=== PATIENT | female | born 1955 | race Caucasian/White ===

== ENCOUNTER → 2016-06-15 | Outpatient (CLI) | payer BC ==
[~2016-06-15] MED LIST: ASPI81TA28 PO; CYAN10005 PO; HYDR-5688 PO; HYDR25TA4 PO; INTB30 IM; METO1TAB69 PO; MULT-506 PO; NABU500T3 PO; NRN/600 PO; VENL150T33 PO
[2016-06-15 16:39] LABS: BASO % 0.4 %; BASO ABS # 0.02 K/uL (0-0.2); COMPLETE YES; EOS % 4.1 %; HEMATOCRIT 39.6 % (37-47); IG% 0.2 %; LYMPH % 37.1 %; LYMPH ABS # 1.98 K/uL (1.2-3.4); MEAN CELL VOLUME 90.8 fL (80-100); MEAN CORPUSCULAR HEMOGLOBIN 29.1 pg (25-34); MEAN CORPUSCULAR HGB CONC 32.1 g/dl (32-36); MEAN PLATELET VOLUME 11.6 fL (7.4-10.4); MONO % 12.9 %; NEUT % 45.3 %; PLATELET COUNT 146 K/uL (130-400); RED BLOOD COUNT 4.36 M/uL (4.2-5.4); WHITE BLOOD COUNT 5.34 K/uL (4.8-10.8)
[2016-06-15 16:46] LABS: ALT/SGPT 57 U/L (12-78); AST/SGOT 44 U/L (15-37); BLOOD UREA NITROGEN 20 mg/dl (7-18); CALCIUM 8.8 mg/dl (8.5-10.1); CARBON DIOXIDE 32 mmol/L (21-32); CHLORIDE 103 mmol/L (98-107); GLUCOSE 114 mg/dl (70-99); POTASSIUM 4.4 mmol/L (3.5-5.1); SODIUM 141 mmol/L (136-145)
[2016-06-15 16:58] LABS: ALB/GLOB RATIO 0.9 (0.9-2); ALKALINE PHOSPHATASE 126 U/L (45-117); CHOLESTEROL 281 mg/dl (0-200); CHOLESTEROL/HDL RATIO 4.8; HDL CHOLESTEROL 58 mg/dl; LDL CHOLESTEROL CALCULATED 197 mg/dl; TRIGLYCERIDES 129 mg/dl (0-150); VERY LOW DENSITY LIPOPROT CALC 26 mg/dl
[2016-06-16 06:00] LABS: ESTIMATED AVERAGE GLUCOSE 137 mg/dl; HA1C FLAG Normal (Normal)
== END | disposition home or self-care (01) ==
LOC: C.LABBFT 12:46
PROVIDERS: ATTEND Internal Medicine
DX: I10 Essential (primary) hypertension (principal); G35 Multiple sclerosis; R73.01 Impaired fasting glucose

== ENCOUNTER → 2016-09-19 | Outpatient (CLI) | payer BC ==
[~2016-09-19] MED LIST changes: +METO100T44 PO; -METO1TAB69 PO; +TAPE50TA5 PO
[2016-09-19 19:38] LABS: THYROID STIMULATING HORMONE 1.63 uIu/ml (0.300-4.500)
== END | disposition home or self-care (01) ==
LOC: C.LABBFT 12:18
PROVIDERS: ATTEND Internal Medicine
DX: G35 Multiple sclerosis (principal)

== ENCOUNTER → 2016-09-24 | Outpatient (CLI) | payer BC ==
--- NOTE | 2016-09-24 11:45 | DIAGNOSTIC IMAGING REPORT ---
ABDOMINAL ULTRASOUND, RIGHT UPPER QUADRANT HISTORY: R94.5 Elevated liver function [id number]. COMPARISON: Abdomen and pelvis CT 02/10/2014. FINDINGS: Pancreas: The pancreas demonstrates a normal echotexture. Liver: The liver is echogenic consistent with fatty change. Gallbladder: No gallbladder wall thickening. No gallstones. CBD: 4 mm. Right kidney: No hydronephrosis. IMPRESSION: Hepatic steatosis. Normal gallbladder. Electronically signed by: Jose Juan Trevino M.D. 09/24/2016 11:43 AM Dictated Date/Time: 09/24/2016 11:41 AM
== END | disposition home or self-care (01) ==
LOC: C.ULTR 11:12
PROVIDERS: ATTEND Internal Medicine
DX: R94.5 Abnormal results of liver function studies (principal); K76.0 Fatty (change of) liver, not elsewhere classified

== ENCOUNTER → 2016-12-05 | Outpatient (CLI) | payer BC ==
[~2016-12-05] MED LIST changes: -METO100T44 PO; +METO1TAB69 PO; -NABU500T3 PO; -TAPE50TA5 PO
[2016-12-05 17:53] LABS: ALT/SGPT 58 U/L (12-78); BLOOD UREA NITROGEN 13 mg/dl (7-18); BUN/CREATININE RATIO 10.9 (10-20); CALCIUM 9.5 mg/dl (8.5-10.1); CARBON DIOXIDE 29 mmol/L (21-32); CHLORIDE 105 mmol/L (98-107); CHOLESTEROL 230 mg/dl (0-200); GLUCOSE 158 mg/dl (70-99); POTASSIUM 3.4 mmol/L (3.5-5.1); SODIUM 141 mmol/L (136-145)
[2016-12-05 17:55] LABS: ALB/GLOB RATIO 0.9 (0.9-2); ALKALINE PHOSPHATASE 117 U/L (45-117); AST/SGOT 45 U/L (15-37); CHOLESTEROL/HDL RATIO 5.1; HDL CHOLESTEROL 45 mg/dl; LDL CHOLESTEROL CALCULATED 152 mg/dl; TRIGLYCERIDES 163 mg/dl (0-150); VERY LOW DENSITY LIPOPROT CALC 33 mg/dl
[2016-12-05 18:04] LABS: ALKALINE PHOSPHATASE 121 U/L (45-117); ALT/SGPT 56 U/L (12-78); AST/SGOT 43 U/L (15-37)
[2016-12-06 07:00] LABS: ESTIMATED AVERAGE GLUCOSE 143 mg/dl; HA1C FLAG Normal (Normal)
== END | disposition home or self-care (01) ==
LOC: C.LABBFT 12:24
PROVIDERS: ATTEND Psychiatry & Neurology Neurology
DX: G35 Multiple sclerosis (principal); R73.01 Impaired fasting glucose

== ENCOUNTER → 2017-07-02 | Outpatient (CLI) | payer BC ==
[~2017-07-02] MED LIST changes: -HYDR-5688 PO; +METO100T44 PO; -METO1TAB69 PO; +TAPE50TA5 PO
[2017-07-02 17:54] LABS: HEMATOCRIT 40.8 % (37-47); HEMOGLOBIN 13.2 g/dL (12.0-16.0); MEAN CELL VOLUME 87.7 fL (80-100); MEAN CORPUSCULAR HEMOGLOBIN 28.4 pg (25-34); MEAN CORPUSCULAR HGB CONC 32.4 g/dl (32-36); MEAN PLATELET VOLUME 11.8 fL (7.4-10.4); PLATELET COUNT 150 K/uL (130-400); RED CELL DISTRIBUTION WIDTH CV 14.8 % (11.5-14.5); RED CELL DISTRIBUTION WIDTH SD 47.5 fL (36.4-46.3)
[2017-07-02 18:31] LABS: ALBUMIN 3.6 gm/dl (3.4-5.0); ALT/SGPT 42 U/L (12-78); AST/SGOT 33 U/L (15-37); BLOOD UREA NITROGEN 22 mg/dl (7-18); CALCIUM 9.1 mg/dl (8.5-10.1); CARBON DIOXIDE 29 mmol/L (21-32); CHOLESTEROL 223 mg/dl (0-200); CREATININE 0.98 mg/dl (0.60-1.20); GLUCOSE 157 mg/dl (70-99); POTASSIUM 3.7 mmol/L (3.5-5.1); SODIUM 138 mmol/L (136-145)
[2017-07-02 18:42] LABS: ALKALINE PHOSPHATASE 100 U/L (45-117); LDL CHOLESTEROL CALCULATED 151 mg/dl; TOTAL PROTEIN 7.4 gm/dl (6.4-8.2)
[2017-07-03 07:17] LABS: HEMOGLOBIN A1C 6.7 % (4.5-5.6)
== END | disposition home or self-care (01) ==
LOC: C.LABBFT 13:06
PROVIDERS: ATTEND Psychiatry & Neurology Neurology
DX: G35 Multiple sclerosis (principal); E11.9 Type 2 diabetes mellitus without complications

== ENCOUNTER → 2017-07-04 | Outpatient (CLI) | payer BC ==
[~2017-07-04] MED LIST changes: +DICL50TA3 PO; +OXYC1TAB3 PO
== END | disposition home or self-care (01) ==
LOC: C.LABBFT 12:56
PROVIDERS: ATTEND Internal Medicine
DX: E11.9 Type 2 diabetes mellitus without complications (principal)

== ENCOUNTER 2017-07-15 21:34 | Emergency (ER) | payer BC ==
[~2017-07-15] VITALS: Ht 157.5 cm; Wt 88.5 kg
[~2017-07-15 21:34] MED LIST changes: -OXYC1TAB3 PO
[2017-07-15 21:49] VITALS: TEMP 36.6; Ht 157.5 cm; Wt 88.5 kg
--- NOTE | 2017-07-15 22:36 | DIAGNOSTIC IMAGING REPORT ---
L HUMERUS MIN 2 VIEWS ROUTINE CLINICAL HISTORY: Left humeral pain status post trauma COMPARISON: None. DISCUSSION: There is a proximal left humeral fracture involving the humeral neck and greater tuberosity. There is no dislocation. The fracture is relatively nondisplaced. IMPRESSION: Acute proximal humeral fracture with involvement of the humeral neck and greater tuberosity. No evidence of dislocation Electronically signed by: Roni Andrade M.D. 07/15/2017 10:34 PM Dictated Date/Time: 07/15/2017 10:33 PM
[2017-07-15] MEDS ORDERED: KETOROLAC TROMETHAMINE 60 MG/2 ML VIAL IM STA (22:41)
[2017-07-15] MEDS ORDERED: ONDANSETRON 4MG OD TAB PO ONE (23:15)
[2017-07-15] MEDS ORDERED: OXYCODONE IR HOME PACK PO ONE (23:15)
[2017-07-15] MEDS ORDERED: OXYC1TAB3 PO (23:26)
--- NOTE | 2017-07-15 23:28 | EMERGENCY ROOM VISIT NOTE ---
History First contact with patient: 22:16 Chief Complaint: ARM PAIN Stated Complaint: BROKEN ARM L History of Present Illness The patient is a 61 year old female who presents to the Emergency Room with complaints of an injury to her left arm. The patient reports that she slipped on the snow and fell onto her left arm. She reports pain in the left upper arm rated 6/10. She denies numbness or weakness. She denies pain of the elbow or forearm. She did not hit her head when she fell. She denies any other injuries. Review of Systems A complete 6 point review of systems was reviewed with the patient with pertinent positives and negatives as per history of present illness. All else were negative. Past Medical/Surgical History Medical Problems: (1) Cellulitis (2) Kidney stone (3) Multiple sclerosis Surgical Problems: (1) H/O: hysterectomy Family History FH: HTN (hypertension) FH: diabetes mellitus FH: heart disease Kidney stone Social History Smoking Status: Never Smoker Alcohol Use: none Drug Use: none Marital Status: Occupation Status: employed Current/Historical Medications Scheduled Hydrochlorothiazide (Hctz), 25 MG PO QAM Interferon Beta-1A (Avonex), 30 MCG IM WK Metoprolol Succ (Toprol Xl) (Toprol-Xl ), 100 MG PO QAM Multivitamin (Multivitamin), 1 TAB PO DAILY Scheduled PRN Oxycodone Ir (Roxicodone Ir), 1-2 TAB PO Q4H PRN for Pain Physical Exam Vital Signs Date Time Temp Pulse Resp B/P (MAP) Pulse Ox O2 Delivery O2 Flow Rate FiO2 07/15/17 23:43 70 20 138/90 93 07/15/17 21:49 36.6 75 20 147/90 92 Room Air Physical Exam VITALS: Vitals are noted on the nurse's note and reviewed by myself. Vital signs stable. GENERAL: This is a 61-year-old female, in no acute distress, nondiaphoretic, well-developed well-nourished. MUSCULOSKELETAL: There is tenderness to palpation to the proximal aspect of the left humerus. Full range of motion of the shoulder and elbow. No tenderness of the distal clavicle, elbow or forearm. Addiction Treatment Counselor strength 5/5. NEURO: Patient was alert and oriented to person place and time. Medical Decision & Procedures ER Provider Diagnostic Interpretation: L HUMERUS MIN 2 VIEWS ROUTINE CLINICAL HISTORY: Left humeral pain status post trauma COMPARISON: None. DISCUSSION: There is a proximal left humeral fracture involving the humeral neck and greater tuberosity. There is no dislocation. The fracture is relatively nondisplaced. IMPRESSION: Acute proximal humeral fracture with involvement of the humeral neck and greater tuberosity. No evidence of dislocation Medications Administered Medications (Trade) Dose Ordered Sig/Ashish Route Start Time Stop Time Status Last Admin Dose Admin Ketorolac Tromethamine (Toradol Inj) 60 mg NOW STAT IM 07/15/17 22:41 07/15/17 22:42 DC 07/15/17 22:49 60 MG Oxycodone HCl (Roxicodone Immediate Rel 5MG Home Pack) 1 homepack UD ONCE PO 07/15/17 23:15 07/15/17 23:16 DC 07/15/17 23:29 1 HOMEPACK Ondansetron HCl (Zofran Odt) 4 mg ONE ONCE PO 07/15/17 23:15 07/15/17 23:16 DC 07/15/17 23:29 4 MG Medical Decision Differential diagnosis includes fracture, contusion, dislocation, among others. The patient was evaluated as above. X-ray of the left humerus was obtained and did show a fracture of the proximal humerus. Patient was placed in an arm sling. She was given a home pack and prescription of oxycodone for breakthrough pain. She requested Zofran for nausea and was given 4 mg Zofran ODT. She does have an intrathecal pain pump and was instructed to contact her pain management provider to discuss changing the dose of medication. Medication Reconcilliation Current Medication List: was personally reviewed by nh Blood Pressure Screening Patient's blood pressure: Normal blood pressure Impression Primary Impression: Proximal humeral fracture Departure Information Dispostion Home / Self-Care Condition GOOD Prescriptions Oxycodone Ir (Roxicodone Ir) 5 Mg Tab 1-2 TAB PO Q4H Y for Pain, #10 TAB For Initial Treatment Prov: Ju Flannery ., MARK 07/15/17 Referrals Ayaan Jennings M.D. (PCP) Christian Bonilla M.D. Patient Instructions [facility] Additional Instructions You have been treated in the Emergency Department for an arm fracture. You have been prescribed OxyIR to be used for pain control. This is a narcotic medication. You cannot drive or consume alcohol while on this medicine. This medicine should only be used for pain that cannot be controlled with over-the- counter pain medicines. For pain control, you can use the following [id number] medicines (if >12 yo): - Regular strength (325mg/tab) Tylenol (acetaminophen) 2 tabs every 4-6 hours as needed. Do not exceed 12 tablets in a 24 hour period. Avoid taking more than 4 grams (4000 mg) of Tylenol per day. This includes any other sources of acetaminophen you may take on a regular basis. - Regular strength (200 mg/tab) Advil (ibuprofen) 1-2 tabs every 4-6 hours as needed. Do not exceed a dose of 3200 mg per day. If this is a recent injury (<24 hrs), ice can be applied to the area of pain for the first 3 days to help decrease pain and inflammation. You have been provided the number for an Orthopaedic Surgeon. You should call this number as soon as possible to establish a follow-up visit from today's Emergency Department visit. Keep the shoulder sling in place until evaluated by Orthopedics. Return to the Emergency Department if your current symptoms worsen despite treatment course outlined above, or if you develop any of the following symptoms : intractable pain despite aforementioned treatment course or new onset of numbness or tingling of the arm. Problem Qualifiers Primary Impression: Proximal humeral fracture Encounter type: initial encounter Fracture type: closed
[2017-07-15 23:43] VITALS: BP 138/90; PULSE 70; O2SAT 93
== END 2017-07-15 23:44 | disposition home or self-care (01) ==
LOC: C.EDB 21:37 → C.EDA 23:44
DX: S42.295A Other nondisplaced fracture of upper end of left humerus, initial encounter for closed fracture (principal); S42.255A Nondisplaced fracture of greater tuberosity of left humerus, initial encounter for closed fracture; W00.9XXA Unspecified fall due to ice and snow, initial encounter; G35 Multiple sclerosis; Z82.49 Family history of ischemic heart disease and other diseases of the circulatory system; Z83.3 Family history of diabetes mellitus; Z84.1 Family history of disorders of kidney and ureter

== ENCOUNTER → 2017-07-15 | Outpatient (CLI) | payer BC ==
[~2017-07-15] MED LIST changes: -DICL50TA3 PO
== END | disposition home or self-care (01) ==
LOC: C.MAMM 12:50
PROVIDERS: ATTEND Internal Medicine
DX: M85.852 Other specified disorders of bone density and structure, left thigh (principal); M85.851 Other specified disorders of bone density and structure, right thigh

== ENCOUNTER → 2018-01-06 | Outpatient (CLI) | payer BC ==
[~2018-01-06] MED LIST changes: -ASPI81TA28 PO; +Baclofen IT; -CYAN10005 PO; +DICL50TA3 PO; +MORPHINE; -NRN/600 PO; -VENL150T33 PO; +clonidine IT
[2018-01-06 17:25] LABS: BASO % 0.3 %; BASO ABS # 0.02 K/uL (0-0.2); EOS % 3.8 %; EOS ABS # 0.22 K/uL (0-0.5); HEMATOCRIT 38.5 % (37-47); HEMOGLOBIN 12.3 g/dL (12.0-16.0); IG# 0.02 K/uL (0.00-0.02); LYMPH % 31.6 %; LYMPH ABS # 1.81 K/uL (1.2-3.4); MEAN CELL VOLUME 90.4 fL (80-100); MEAN CORPUSCULAR HEMOGLOBIN 28.9 pg (25-34); MEAN CORPUSCULAR HGB CONC 31.9 g/dl (32-36); MEAN PLATELET VOLUME 12.2 fL (7.4-10.4); MONO % 13.1 %; MONO ABS # 0.75 K/uL (0.11-0.59); NEUT % 50.9 %; NEUT ABS # 2.91 K/uL (1.4-6.5); PLATELET COUNT 146 K/uL (130-400); RED CELL DISTRIBUTION WIDTH CV 14.2 % (11.5-14.5); RED CELL DISTRIBUTION WIDTH SD 46.5 fL (36.4-46.3); WHITE BLOOD COUNT 5.73 K/uL (4.8-10.8)
[2018-01-06 17:53] LABS: BLOOD UREA NITROGEN 17 mg/dl (7-18); CARBON DIOXIDE 27 mmol/L (21-32); CREATININE 1.05 mg/dl (0.60-1.20); GLUCOSE 121 mg/dl (70-99); SODIUM 139 mmol/L (136-145)
[2018-01-06 17:54] LABS: ALBUMIN 3.3 gm/dl (3.4-5.0); ALKALINE PHOSPHATASE 125 U/L (45-117); ALT/SGPT 39 U/L (12-78); AST/SGOT 31 U/L (15-37); CALCIUM 8.5 mg/dl (8.5-10.1); CHOLESTEROL 250 mg/dl (0-200); LDL CHOLESTEROL CALCULATED 175 mg/dl; TOTAL PROTEIN 6.7 gm/dl (6.4-8.2)
[2018-01-07 06:09] LABS: HEMOGLOBIN A1C 6.3 % (4.5-5.6)
== END | disposition home or self-care (01) ==
LOC: C.LABBFT 12:59
PROVIDERS: ATTEND Internal Medicine
DX: E11.9 Type 2 diabetes mellitus without complications (principal)

== ENCOUNTER 2024-03-09 09:16 | Observation (INO) ==
--- NOTE | 2024-01-30 12:33 | PAT Medication Instructions ---
Medication Instructions Date of Service January 30, 2024 Home Medications Medication Instructions Recorded ondansetron HCl 8 mg tablet 8 mg PO DAILY PRN nausea and 08/14/22 vomiting #90 tabs venlafaxine 150 mg 150 mg PO QAM #90 caps 03/14/23 capsule,extended release 24 hr (Effexor XR) Cock Up Wrist Splint #1 ea 06/25/23 naloxone 4 mg/actuation nasal 4 mg intranasal Q2M PRN overdose 07/11/23 spray (Narcan) #2 ea methenamine hippurate 1 gram tablet 1 g PO BID #180 tabs 11/08/23 hydrochlorothiazide 25 mg tablet 25 mg PO QAM #90 tabs 12/31/23 metoprolol succinate 100 mg 100 mg PO QAM #90 tabs 12/31/23 tablet,extended release 24 hr latanoprost 0.005 % eye drops 1 drp ophthalmic (eye) QPM #10 mL 01/10/24 nitrofurantoin 100 mg PO Q12H 7 days #14 caps 01/10/24 monohydrate/macrocrystals 100 mg capsule (Macrobid) aspirin 81 mg tablet,delayed release 81 mg PO HS baclofen 10,000 mcg/20 mL (500 mcg/mL) intrathecal solution 500 mcg intrathecal UD morphine (PF) 0.5 mg/mL injection solution 1 mg intrathecal UD ondansetron HCl 8 mg tablet 8 mg PO DAILY PRN cholecalciferol (vitamin D3) 50 mcg (2,000 unit) capsule 50 mcg PO QAM venlafaxine 150 mg capsule,extended release 24 hr (Effexor XR) 150 mg PO QAM naloxone 4 mg/actuation nasal spray (Narcan) 4 mg intranasal Q2M PRN baclofen 10 mg tablet 10 mg PO TID PRN methenamine hippurate 1 gram tablet 1 g PO BID hydrochlorothiazide 25 mg tablet 25 mg PO QAM metoprolol succinate 100 mg tablet,extended release 24 hr 100 mg PO QAM latanoprost 0.005 % eye drops 1 drp ophthalmic (eye) QPM nitrofurantoin monohydrate/macrocrystals 100 mg capsule (Macrobid) 100 mg PO Q12 H atorvastatin 40 mg tablet 40 mg PO HS cranberry extract 1 cap PO BID glycopyrronium tosylate 2.4 % towelette (Qbrexza) 1 applic topical DAILY PRN potassium chloride 20 mEq tablet,extended release 20 meq PO QAM Continue as directed ondansetron HCl 8 mg tablet 8 mg PO DAILY PRN(if needed) naloxone 4 mg/actuation nasal spray (Narcan) 4 mg intranasal Q2M PRN(if needed) ASK your prescriber and surgeon aspirin 81 mg tablet,delayed release 81 mg PO HS baclofen 10,000 mcg/20 mL (500 mcg/mL) intrathecal solution 500 mcg intrathecal UD morphine (PF) 0.5 mg/mL injection solution 1 mg intrathecal UD STOP taking 24 hours before surgery glycopyrronium tosylate 2.4 % towelette (Qbrexza) 1 applic topical DAILY PRN DO NOT take the morning of surgery cholecalciferol (vitamin D3) 50 mcg (2,000 unit) capsule 50 mcg PO QAM hydrochlorothiazide 25 mg tablet 25 mg PO QAM cranberry extract 1 cap PO BID potassium chloride 20 mEq tablet,extended release 20 meq PO QAM Take morning of surgery With a small sip of water, OTHERWISE NOTHING TO EAT OR DRINK AFTER MIDNIGHT: venlafaxine 150 mg capsule,extended release 24 hr (Effexor XR) 150 mg PO QAM baclofen 10 mg tablet 10 mg PO TID PRN(if needed) methenamine hippurate 1 gram tablet 1 g PO BID metoprolol succinate 100 mg tablet,extended release 24 hr 100 mg PO QAM nitrofurantoin monohydrate/macrocrystals 100 mg capsule (Macrobid) 100 mg PO Q12H Take evening before surgery baclofen 10 mg tablet 10 mg PO TID PRN(if needed) methenamine hippurate 1 gram tablet 1 g PO BID latanoprost 0.005 % eye drops 1 drp ophthalmic (eye) QPM nitrofurantoin monohydrate/macrocrystals 100 mg capsule (Macrobid) 100 mg PO Q12H atorvastatin 40 mg tablet 40 mg PO HS cranberry extract 1 cap PO BID Other Notes If you have any questions please call us at [phone] or [phone] or [phone] or [phone]
--- NOTE | 2024-02-04 14:55 | Anesthesiology Consultation ---
Date of Service February 04, 2024 Assessment & Plan (1) Encounter for pre-operative examination: - Infectious disease screening: Per assessment on 02/04/24: No known recent infectious disease contacts or current infectious disease symptoms. - Outpatient joint assessment: Pt currently scheduled for inpatient pathway. If surgeon requests review for outpatient joint pathway, patient is not recommended candidate for outpatient joint program from anesthesia standpoint based on available information. - Preop CXR: Done 02/04/24, notes postoperative change vs 4th/5th right rib fractures. No pneumothorax. Reviewed with Dr. Strickland. He feels that if patient has not had recent affiliated trauma and no current significant associated pain/symptoms, okay to proceed without further in regards to CXR findings. Spoke with patient via phone 02/05/24- she states that she does have known hx of right sided right fractures after trauma/fall 6 years ago. No recent trauma/issues since. Denies associated pain/symptoms. At anesthesiologist discretion DOS if updated CXR/further needed or perioperative positioning from their perspective. - Abnormal preop EKG: Bifascicular block (RBBB + LAFB) on preop EKG. Preop cardio appt arranged (patient aware). Patient acceptable risk for surgery pending preop cardiology evaluation ([facility], appt 02/12). Chart Review Chart Review: Patient seen in Pre Admission Testing Teaching & Discussion Pre-Anesthesia Teaching/Discussion Notes: Instructed NPO after midnight before surgery,except medications with 15 cc of water. Medication instructions provided according to the PAT guidelines. History Surgery Operation Date: 03/09/24 10:15 Proposed Procedures p Left Total Shoulder Arthroplasty Reverse - Johnny Gutiérrez DO Height/Weight Height: 5 ft 3 in Weight: 81.8 kg Allergies Allergy/AdvReac Type Severity Reaction Status Date / Time No Known Allergies Allergy Verified 01/30/24 11:46 Medications Home Medications Medication Instructions Recorded Confirmed Last Taken aspirin 81 mg tablet,delayed 81 mg PO HS 01/30/19 01/30/24 1 Week Ago release ~10/25/20 baclofen 10,000 mcg/20 mL (500 500 mcg intrathecal UD 01/30/19 01/30/24 Unknown mcg/mL) intrathecal solution morphine (PF) 0.5 mg/mL injection 1 mg intrathecal UD 01/30/19 01/30/24 Unknown solution ondansetron HCl 8 mg tablet 8 mg PO DAILY PRN nausea and 08/14/22 01/30/24 Unknown vomiting #90 tabs cholecalciferol (vitamin D3) 50 50 mcg PO QAM 02/15/23 01/30/24 Unknown mcg (2,000 unit) capsule venlafaxine 150 mg 150 mg PO QAM #90 caps 03/14/23 01/30/24 Unknown capsule,extended release 24 hr (Effexor XR) Cock Up Wrist Splint #1 ea 06/25/23 01/07/24 Unknown naloxone 4 mg/actuation nasal 4 mg intranasal Q2M PRN overdose 07/11/23 01/30/24 Unknown spray (Narcan) #2 ea baclofen 10 mg tablet 10 mg PO TID PRN muscle spasm 08/22/23 01/30/24 Unknown methenamine hippurate 1 gram tablet 1 g PO BID #180 tabs 11/08/23 01/30/24 Unknown hydrochlorothiazide 25 mg tablet 25 mg PO QAM #90 tabs 12/31/23 01/30/24 Unknown metoprolol succinate 100 mg 100 mg PO QAM #90 tabs 12/31/23 01/30/24 Unknown tablet,extended release 24 hr latanoprost 0.005 % eye drops 1 drp ophthalmic (eye) QPM #10 mL 01/10/24 01/30/24 Unknown nitrofurantoin 100 mg PO Q12H 7 days #14 caps 01/10/24 01/30/24 Unknown monohydrate/macrocrystals 100 mg capsule (Macrobid) atorvastatin 40 mg tablet 40 mg PO HS 01/30/24 01/30/24 Unknown cranberry extract 1 cap PO BID 01/30/24 01/30/24 Unknown glycopyrronium tosylate 2.4 % 1 applic topical DAILY PRN prn 01/30/24 01/30/24 Unknown towelette (Qbrexza) potassium chloride 20 mEq 20 meq PO QAM 01/30/24 01/30/24 Unknown tablet,extended release Past Medical History Medical History (Updated 02/04/24 @ 15:42 by Steffany Patel) BPPV (benign paroxysmal positional vertigo) Chronic lumbar pain Depression Dyslipidemia Frequent urinary tract infections History of blood transfusion 20 years ago in setting of fracture/ORIF History of COVID-19 05/2020- Nausea, vertigo, dry cough, pleurisy > resolved/recovered 2022 History of nephrolithiasis Hyperhidrosis Hypertension Multiple sclerosis Stable Neuropathic pain of both legs Obesity Osteoarthritis Osteoporosis Prediabetes HGBA1C 10/2023: 6.1% Presence of intrathecal pump Baclofen and Morphine Spasticity Spinal stenosis of lumbar region Trigeminal neuralgia of right side of face Exercise / Class Metabolic Activity II 4-5 Yardwork/Stairs/Walk up hill Past Family History Family History Grandfather No problems noted. Grandmother No problems noted. Father Family history of kidney stone Hypertension Stroke Mother Family history of kidney stone Hypertension Family/Other Hypertension Colorectal cancer Grandmother (Maternal) Diabetes Grandmother (Paternal) Diabetes Sister Breast cancer Family history of kidney stone Sister Diabetes Denies family history of Ovarian cancer Past Surgical History Surgical History (Updated 02/04/24 @ 14:53 by Steffany Patel) H/O: hysterectomy r/t fibroids (ovaries remain) History of lithotripsy x4 History of open reduction and internal fixation (ORIF) procedure Right shoulder History of surgery intrathecal pump implanted History of tonsillectomy and adenoidectomy S/P laparoscopy Past Anesthesia History No Hx of Anesthesia Complications and No Family Hx of Anesthesia Complications History of PONV No Hx of PONV and No Hx of Motion Sickness Social History Smoking Status: Never smoker Do You Dip or Chew Tobacco: No Hx Alcohol Use: No Hx Substance Use: No substance use type: does not use Review of Systems Patient denies chest pain, shortness of breath, dyspnea on exertion, fever, chills, cough, wheezing, palpitations. Physical Exam Vital Signs BP 101/66 P 65 TEMP 98.3 SP02 98%RA RESP 16 Physical Full cervical extension range of motion. Full TMJ range of motion. TMD > 3.5 finger breaths Mallampati Score III Dentition: intact, upper front implants/molars Lungs: clear throughout to auscultation Cardiac: regular rate and rhythm, no murmurs noted Spine: normal Carotid arteries: negative bruit Lab Results Anesthesia Preop Results Results Anesthesia Widget: WBC 5.73 K/ul (4.8-10.8) 02/04/24 Hgb 11.5 g/dl (12.0-16.0) L 02/04/24 Hct 36.5 % (37.0-47.0) L 02/04/24 Plt 170 K/uL (130-400) 02/04/24 Na 141 mmol/L (136-145) 02/04/24 K 4.0 mmol/L (3.5-5.1) 02/04/24 Cl 104 mmol/L (98-107) 02/04/24 CO2 30 mmol/L (21-32) 02/04/24 BUN 12 mg/dl (6-23) 02/04/24 Creat 0.86 mg/dl (0.6-1.2) 02/04/24 Glucose Level 99 mg/dl (70-99(Fasting)) 02/04/24 PT 10.5 Seconds (9.0-12.0) 02/04/24 PTT 25 Seconds (21-31) 02/04/24 INR 1.0 (0.9-1.1) 02/04/24 Urine Color Yellow 01/29/24 Urine Appearance Clear (Clear) 01/29/24 Urine pH 5.5 (4.5-7.5) 01/29/24 Urine Specific [place] 1.018 (1.000-1.030) 01/29/24 Urine Protein Negative (Negative) 01/29/24 Urine Glucose (UA) Negative (Negative) 01/29/24 Urine Ketones Negative (Negative) 01/29/24 Urine Blood Negative (Negative) 01/29/24 Urine Nitrite Negative (Negative) 01/29/24 Urine Bilirubin Negative (Negative) 01/29/24 Urine Urobilinogen Negative (Negative) 01/29/24 Urine Leukocyte Esterase 1+ (Negative) H 01/29/24 Urine WBC (Auto) 6-10 /hpf (0-5) H 01/29/24 Urine RBC (Auto) 0-2 /hpf (0-2) 01/29/24 Urine Hyaline Casts (Auto) 0-2 /lpf (0-2) 01/29/24 Urine Epithelial Cells (Auto) 6-10 /hpf (0-2) H 01/29/24 Urine Bacteria (Auto) None Seen (None Seen) 01/29/24 Blood Type A Positive 02/04/24 Antibody Screen NEGATIVE 02/04/24 Testing Laboratory Results Urine culture (01/29/24): probable skin ellen Electrocardiogram Date: 02/04/24 NSR at 61bpm. RBBB. LAFB. *Bifascicular block* Chest X-Ray Date: 02/04/24 FINDINGS: Right humeral intramedullary navjot is partially imaged. Chronic deformity of the left humeral head is again noted. Fractures versus postoperative changes of the right fourth and fifth ribs are noted. No pneumothorax or pleural effusion. No consolidation to suggest pneumonia. Linear density along the left heart border represents atelectasis. Cardiomediastinal silhouette is stable. Mild loss of height of a midthoracic vertebral body is similar to prior chest radiograph. This is chronic. IMPRESSION: No acute cardiopulmonary findings. Fractures versus postoperative changes of the right fourth and fifth ribs. No pneumothorax.
--- NOTE | 2024-03-05 09:28 | History & Physical Report ---
Date of Service March 05, 2024 Assessment & Plan (1) Avascular necrosis of head of humerus: We will proceed with a left reverse shoulder arthroplasty. Postoperatively she will be placed in a sling and kept overnight in the hospital for postop medical management. She plans to use [facility] upon discharge. History of Present Illness Chief Complaint: Avascular necrosis left humerus. Primary Care Provider: Robyn Vila DO Shah is a pleasant 68-year-old female who sustained a left proximal humerus fracture about 6 years ago. She was treated conservatively. Unfortunately, she is now dealing with a chronic left shoulder pain. It hurts when she sleeps or does anything away from her body or up overhead. X-rays and clinical examinati on been diagnostic for avascular necrosis of the humeral head. After failing conservative treatment, she is elected to proceed with a left reverse shoulder arthroplasty. Allergies Allergy/AdvReac Type Severity Reaction Status Date / Time No Known Allergies Allergy Verified 02/26/24 13:02 Home Medications Medication Instructions Recorded Confirmed Type aspirin 81 mg tablet,delayed 81 mg PO HS 01/30/19 02/26/24 History release baclofen 10,000 mcg/20 mL (500 500 mcg intrathecal UD 01/30/19 02/26/24 History mcg/mL) intrathecal solution morphine (PF) 0.5 mg/mL injection 1 mg intrathecal UD 01/30/19 02/26/24 History solution ondansetron HCl 8 mg tablet 8 mg PO DAILY PRN nausea and 08/14/22 02/26/24 Rx vomiting #90 tabs cholecalciferol (vitamin D3) 50 50 mcg PO QAM 02/15/23 02/26/24 History mcg (2,000 unit) capsule Cock Up Wrist Splint #1 ea 06/25/23 02/26/24 Rx naloxone 4 mg/actuation nasal 4 mg intranasal Q2M PRN overdose 07/11/23 02/26/24 Rx spray (Narcan) #2 ea baclofen 10 mg tablet 10 mg PO TID PRN muscle spasm 08/22/23 02/26/24 History methenamine hippurate 1 gram tablet 1 g PO BID #180 tabs 11/08/23 02/26/24 Rx hydrochlorothiazide 25 mg tablet 25 mg PO QAM #90 tabs 12/31/23 02/26/24 Rx metoprolol succinate 100 mg 100 mg PO QAM #90 tabs 12/31/23 02/26/24 Rx tablet,extended release 24 hr latanoprost 0.005 % eye drops 1 drp ophthalmic (eye) QPM #10 mL 01/10/24 02/26/24 Rx atorvastatin 40 mg tablet 40 mg PO HS 01/30/24 02/26/24 History cranberry extract 1 cap PO BID 01/30/24 02/26/24 History glycopyrronium tosylate 2.4 % 1 applic topical DAILY PRN prn 01/30/24 02/26/24 History towelette (Qbrexza) nabumetone 500 mg tablet 500 mg PO BID #60 tabs 02/26/24 02/26/24 Rx potassium chloride 20 mEq 20 meq PO BID #180 tabs 02/26/24 02/26/24 Rx tablet,extended release venlafaxine 150 mg 150 mg PO QAM #90 caps 02/26/24 02/26/24 Rx capsule,extended release 24 hr (Effexor XR) Past Med/Surg History Problem List (Updated 03/05/24 @ 09:28 by Johnny Gutiérrez DO) Avascular necrosis of head of humerus Bifascicular block Pre-operative cardiovascular exam, new EKG abnormalities c/w ischemia Lumbar facet joint syndrome Intractable neuropathic pain of lower extremity (Chronic) Glaucoma (Chronic) Medical History History of blood transfusion 20 years ago in setting of fracture/ORIF Trigeminal neuralgia of right side of face Spinal stenosis of lumbar region Spasticity Presence of intrathecal pump Baclofen and Morphine Osteoporosis Osteoarthritis Multiple sclerosis Stable Neuropathic pain of both legs Hypertension Hyperhidrosis Frequent urinary tract infections Dyslipidemia Chronic lumbar pain BPPV (benign paroxysmal positional vertigo) Depression Prediabetes HGBA1C 10/2023: 6.1% Obesity History of COVID-19 05/2020- Nausea, vertigo, dry cough, pleurisy > resolved/recovered 2022 History of nephrolithiasis Surgical History History of surgery intrathecal pump implanted S/P laparoscopy History of open reduction and internal fixation (ORIF) procedure Right shoulder History of lithotripsy x4 History of tonsillectomy and adenoidectomy H/O: hysterectomy r/t fibroids (ovaries remain) Family History Grandfather No problems noted. Grandmother No problems noted. Father Family history of kidney stone Hypertension Stroke Mother Family history of kidney stone Hypertension Family/Other Hypertension Colorectal cancer Grandmother (Maternal) Diabetes Grandmother (Paternal) Diabetes Sister Breast cancer Family history of kidney stone Sister Diabetes Denies family history of Ovarian cancer Social History Smoking Status: Never smoker Second Hand Exposure: No; Do You Dip or Chew Tobacco: No; Hx Alcohol Use: No Hx Substance Use: No Preferred Language: Icelandic Communication Ability: Effective Visual Impairment: No Limitations Hearing Ability: Normal Geochemical Laboratory Technician Required: No Beliefs That Will Affect Care: None marital status: Current Living Situation: Alone current occupational status: employed 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 Physical Exam On physical exam of the left shoulder, she has decreased range of motion. She is about 80 degrees forward elevation 80 degrees of abduction 20 degrees of external rotation.. Constitutional WD/WN, vitals as above Eyes PERRL, conjunctivae normal, anicteric sclerae ENMT external ear and nose normal, oropharynx normal Neck trachea midline, no thyromegaly Respiratory normal respiratory effort Cardiovascular RRR, no murmur, no edema Gastrointestinal (Abdomen) normal bowel sounds, soft, nontender, no hepatosplenomegaly Psychiatric A+Ox3, euthymic affect Results & Data Results & Data Laboratory Results . Diagnostic Findings X-rays of the left shoulder show signs of avascular necrosis of the humeral head with complete collapse.. PG Care Time/CCT Total # of Minutes Spent Total Time Spent with Patient: Total time spent is greater than 50% in coordination of care (as documented) at patient's floor/unit and/or counseling patient: Coding Level of Care Code None Diagnoses Avascular necrosis of head of humerus M87.029
[~2024-03-09 09:16] MED LIST changes: +BUPIVACAINE 0.5 % 5 MG/1 ML PF 10ML VIAL ONE; -Baclofen IT; -DICL50TA3 PO; -HYDR25TA4 PO; -INTB30 IM; -METO100T44 PO; -MORPHINE; -MULT-506 PO; -TAPE50TA5 PO; -clonidine IT
[2024-03-09] MEDS: LR 60ML/HR IV SCH (10:06)
[2024-03-09] MEDS: LR 15ML/HR IV SCH (10:42)
[2024-03-09] MEDS: dexAMETHasone**PF** 10 MG/ML VIAL IV SCH (10:43)
[2024-03-09] MEDS: FAMOTIDINE 20 MG TAB PO SCH (10:43)
[2024-03-09] MEDS: GABAPENTIN 300 MG CAP PO SCH (10:43)
[2024-03-09] MEDS: ACETAMINOPHEN 500 MG TAB PO SCH ×3 (10:43→20:09)
[2024-03-09] MEDS ORDERED: ATROPINE SULFATE 0.1 MG/ML 10ML SYR IV PRN (11:20)
--- NOTE | 2024-03-09 11:27 | History & Physical Bridge Note ---
Date of Service March 09, 2024 History & Physical Bridge Note I have examined the patient, reviewed the History & Physical and in the interval since the performance of the History & Physical I have noted the following changes of clinical significance: no changes noted
[2024-03-09] MEDS ORDERED: LIDOCAINE 2% 2 ML VIAL/AMP(20MG/ML) INFIL ONE (11:59)
[2024-03-09] MEDS ORDERED: fentaNYL citrate PF 100 MCG/2 ML VIAL ONE (11:59)
[2024-03-09] MEDS ORDERED: PROPOFOL IV EMULSION 10 MG/ML 20 ML VIAL IV ONE (11:59)
[2024-03-09] MEDS ORDERED: MIDAZOLAM HCL 1 MG/ML 2ML VIAL ONE (11:59)
[2024-03-09] MEDS ORDERED: ONDANSETRON INJ 2 MG/ML 2 ML VIAL ONE (11:59)
[2024-03-09] MEDS ORDERED: DEXAMETHASONE SOD INJ 4 MG/ML VIAL ONE (11:59)
[2024-03-09] MEDS: TRANEXAMIC ACID 1,000 MG **IV Pre-op IV SCH (12:14)
[2024-03-09] MEDS: ceFAZolin 2000MG 2,000 MG/15 ML SYR IV SCH ×2 (12:26→21:21)
[2024-03-09] MEDS: ORTHO JOINT ANESTHETIC ONE (13:06)
[2024-03-09] MEDS: ROPIV 0.5% 246mg, Ketorolac 30mg, EPINEPHrine 0.5mg in NSS INFIL SCH (13:06)
[2024-03-09] MEDS: TRANEXAMIC ACID 1,000 MG **IV Intra-op IV SCH (13:30)
[2024-03-09] MEDS: fentaNYL citrate PF 100 MCG/2 ML VIAL IV PRN (14:15)
[2024-03-09] MEDS: KETOROLAC 30 MG/ML VIAL IV PRN (14:16)
[2024-03-09] MEDS: ONDANSETRON INJ 2 MG/ML 2 ML VIAL IV PRN (14:44)
--- NOTE | 2024-03-09 14:47 | Anesthesiology Progress Note ---
Date of Service March 09, 2024 Anesthesia Post Procedure Vital Signs Vital Signs: Temp Pulse Pulse Resp BP Pulse Ox O2 Del Method 03/09/24 14:40 88 19 115/66 94 Room Air 03/09/24 14:30 21 L 18 134/72 98 Room Air 03/09/24 14:20 94 H 12 147/80 H 98 Oxymask 03/09/24 14:10 92 H 14 147/74 H 98 Oxymask 03/09/24 14:00 85 16 152/76 H 98 Oxymask 03/09/24 13:54 36.0 C L 65 18 164/77 H 98 Oxymask 03/09/24 10:30 36.4 C L 63 20 130/72 96 Room Air O2 Flow Rate 03/09/24 14:40 6 03/09/24 14:30 6 03/09/24 14:20 6 03/09/24 14:10 6 03/09/24 14:00 6 03/09/24 13:54 6 03/09/24 10:30 Pain Intensity Bilateral Leg: Pain Intensity: 3 Transfer of Care Handoff Completed per policy Notes Mental Status: alert / awake / arousable and participated in evaluation Patient Amnestic to Procedure: Yes Nausea / Vomiting: adequately controlled Pain: adequately controlled Airway Patency, RR, SpO2: stable & adequate BP & HR: stable & adequate Hydration State: stable & adequate Anesthetic Complications: no major complications apparent
--- NOTE | 2024-03-09 15:06 | Anesthesiology Progress Note ---
Date of Service March 09, 2024 Anesthesia Post Procedure Vital Signs Vital Signs: Temp Pulse Pulse Resp BP Pulse Ox O2 Del Method 03/09/24 15:00 36.7 C 82 16 124/70 94 Room Air 03/09/24 14:50 83 15 137/71 94 Room Air 03/09/24 14:40 88 19 115/66 94 Room Air 03/09/24 14:30 21 L 18 134/72 98 Room Air 03/09/24 14:20 94 H 12 147/80 H 98 Oxymask 03/09/24 14:10 92 H 14 147/74 H 98 Oxymask 03/09/24 14:00 85 16 152/76 H 98 Oxymask 03/09/24 13:54 36.0 C L 65 18 164/77 H 98 Oxymask 03/09/24 10:30 36.4 C L 63 20 130/72 96 Room Air O2 Flow Rate 03/09/24 15:00 03/09/24 14:50 03/09/24 14:40 03/09/24 14:30 03/09/24 14:20 6 03/09/24 14:10 6 03/09/24 14:00 6 03/09/24 13:54 6 03/09/24 10:30 Pain Intensity Bilateral Leg: Pain Intensity: 3 Transfer of Care Handoff Completed per policy Notes Mental Status: alert / awake / arousable and participated in evaluation Patient Amnestic to Procedure: Yes Nausea / Vomiting: adequately controlled Pain: adequately controlled Airway Patency, RR, SpO2: stable & adequate BP & HR: stable & adequate Hydration State: stable & adequate Anesthetic Complications: no major complications apparent
--- NOTE | 2024-03-09 15:09 | XRay Report ---
XR shoulder LT min 2V routine HISTORY: 68 years-old Female Post shoulder surgery left shoulder arthroplasty COMPARISON: 11/06/2023 TECHNIQUE: 2 views of the left shoulder FINDINGS: Reverse left shoulder arthroplasty with overlying skin teodoro, expected postoperative soft tissue sw elling with deep tissue air. Left basilar opacities suggest atelectasis. IMPRESSION: Left shoulder arthroplasty with expected postoperative changes. ACT 112: Negative or not required by law. The above report was generated using voice recognition software. It may contain grammatical, syntax o r spelling errors. Electronically signed by: Ezekiel Bernstein M.D. 03/09/2024 3:07 PM
[2024-03-09] MEDS ORDERED: bisacodyL 10 MG SUPP PR PRN (15:31)
[2024-03-09] MEDS ORDERED: NON-FORMULARY MEDICATION (Ondansetron Hcl 8 mg tablet) PO PRN (15:31)
[2024-03-09] MEDS ORDERED: NALOXONE HCL 0.4 MG/1 ML VIAL/CARP IV PRN (15:31)
[2024-03-09] MEDS ORDERED: NALOXONE NASAL SPRAY 4 MG ER HOMEPACK PRN (15:31)
[2024-03-09] MEDS ORDERED: BACLOFEN IT SCH (15:31)
[2024-03-09] MEDS ORDERED: MoRPHine SULFATE 0.4 MG/1 ML UDP GT SCH (15:31)
[2024-03-09] MEDS ORDERED: ONDANSETRON INJ 2 MG/ML 2 ML VIAL IV PRN (15:31)
[2024-03-09] MEDS ORDERED: METOCLOPRAMIDE HCL INJ 5 MG/ML 2 ML VIAL IV PRN (15:31)
[2024-03-09] MEDS ORDERED: oxyCODONE HCL IR 5 MG TAB (IMMEDIATE RELEASE) PO PRN (15:31)
[2024-03-09] MEDS ORDERED: MAGNESIUM HYDROXIDE SUSP 30 ML UDC PO PRN (15:31)
[2024-03-09] MEDS: SODIUM CHLORIDE 0.9% 1,000 ML IV SCH (16:00)
[2024-03-09] MEDS: KETOROLAC TROMETHAMINE 15 MG/ML VIAL IV SCH (17:51)
[2024-03-09] MEDS ORDERED: NABUMETONE 500 MG TABLET PO SCH (21:00)
[2024-03-09] MEDS: METHENAMINE HIPPURATE 1 GM TAB PO SCH (21:16)
[2024-03-09] MEDS: ATORVASTATIN 40 MG TAB PO SCH (21:16)
[2024-03-09] MEDS: LATANOPROST 0.005% OP SOLN 2.5 ML BTL OP SCH (21:17)
[2024-03-09] MEDS: POTASSIUM CHLORIDE CRTAB 20 MEQ TABCR PO SCH (21:17)
[2024-03-09] MEDS: DOCUSATE SODIUM 100 MG CAP PO SCH (21:17)
[2024-03-09] MEDS: SENNA 8.6 MG TAB PO SCH (21:17)
[2024-03-09] MEDS: ASPIRIN 81 MG ECTAB PO SCH (21:18)
--- NOTE | 2024-03-10 07:13 | Orthopedic Progress Note ---
Date of Service March 10, 2024 Assessment & Plan (1) Status post reverse total replacement of left shoulder: Overall she is doing very well. She is not having much pain in the left shoulder. She will be seen by physical therapy today for ambulation and range of motion exercises. She can be discharged home later today. She will follow- up orthopedics in 2 weeks. Jolene Shah was seen and examined at bedside this morning. Overall she is doing very well. She is not having much pain in the left shoulder. She was able to get some sleep last night. She has no complaints.. Review of Systems All systems reviewed & are unremarkable except as noted in HPI & below. Physical Exam On physical examination left shoulder, the dressing is clean and dry. She is wearing her sling as instructed. The nerve block is still in effect.. Results & Data Results & Data Laboratory Results . Diagnostic Findings Postoperative x-rays of the left shoulder show the prosthesis to be in anatomic alignment without any evidence of fracture complication, or loosening.. PG Care Time/CCT Total # of Minutes Spent Total Time Spent with Patient: Total time spent is greater than 50% in coordination of care (as documented) at patient's floor/unit and/or counseling patient: Coding Level of Care Code 24189 Post Operative Follow-Up Diagnoses Status post reverse total replacement of left shoulder Z96.612
--- NOTE | 2024-03-10 07:14 | Discharge Summary ---
Date of Service March 10, 2024 Admission HPI (Per Admitting) Alyssa is a pleasant 68-year-old female who sustained a left proximal humerus fracture about 6 years ago. She was treated conservatively. Unfortunately, she is now dealing with a chronic left shoulder pain. It hurts when she sleeps or does anything away from her body or up overhead. X-rays and clinical examination been diagnostic for avascular necrosis of the humeral head. After failing conservative treatment, she is elected to proceed with a left reverse shoulder arthroplasty. Admission Exam (Per Admitting) On physical exam of the left shoulder, she has decreased range of motion. She is about 80 degrees forward elevation 80 degrees of abduction 20 degrees of external rotation.. Principal Diagnosis Same as "Discharge Diagnosis" noted below under Discharge Instructions. Discharge Exam On physical examination left shoulder, the dressing is clean and dry. She is wearing her sling as instructed. The nerve block is still in effect.. Discharge Data Procedures Performed Operation Date: 03/09/24 12:00 Actual Procedures p Left Reverse Total Shoulder Arthroplasty(Left) - Johnny Gutiérrez DO Ordered Studies 03/09/24 05:00 US - OR guided needle placemen Routine Hospital Course (1) Status post reverse total replacement of left shoulder: On March 09, [address] [facility] and underwent a left reverse shoulder replacement without complication. She had a general anesthetic and a left interscalene nerve block. Postoperatively, she was placed in a sling and transferred to the general orthopedic floors. Her hospital course was uneventful. On postop day #1, her vital signs were stable and her pain was well-controlled. She was able to participate well with physical therapy doing ambulation and range of motion exercises. She was then discharged to home. She will follow-up orthopedics in 2 weeks. PG Care Time/CCT Total # of Minutes Spent Total Time Spent with Patient: Total time spent is greater than 50% in coordination of care (as documented) at patient's floor/unit and/or counseling patient: Discharge Plan Discharge Items Patient Disposition: Home - Self-Care Reason For Visit: Degenerative Joint Disease Left Shoulder Discharge Diagnosis: Left reverse shoulder replacement Activity: Per Instructions section Non-emergency contact: Surgeon Call non-emergency contact if: your wound has increased redness and your wound has increased drainage Follow-up/Referrals: Robyn Vila DO [Primary Care Provider] - Diet: Regular Addtl Attending Provider Instructions: Activity and Therapy Recommendations: * If you are using [facility] then therapy will be provided at your home until they feel you have accomplished all of your goals. * If you are using [facility] then Physical Therapy will be provided until they feel you are ready to start Outpatient Physical Therapy. * If you are not using home therapy then Outpatient Physical Therapy should start about 3-5 days from your day of surgery. Therapy will last about 8-12 weeks * Wear your sling for 3 weeks, unless otherwise instructed. You may remove your sling to shower and to dress, but otherwise, you should be in your sling at all times, including while sleeping * The shoulder replacement is very stable and you can use your hand while in the sling * You were shown a series of exercises in the hospital. Do these exercises daily including the exercises you were shown in physical therapy. Medications: * Narcotic You will likely be sent home from the hospital with a prescription for the narcotic pain medication that worked best throughout your stay. * Cefadroxil -take the antibiotic twice a day for 10 days to help prevent infection. * Other medications may be prescribed for specific circumstances. If you have any questions, please call the office at . * Resume previous home medications unless otherwise instructed Dressing Care: Leave the Silverlon dressing in place for 7 days. After 7 days you may remove the dressing. If the incision is not draining then you may leave the teodoro open to air. If there is a little bit of drainage or if the teodoro are getting stuck on your clothing then cover the incision with a dry dressing. The teodoro will be removed at your 2 week follow-up appointment. Showering: You may shower with the Silverlon dressing in place. Do not let the shower spray hit the dressing directly. Pat the Silverlon dressing dry. If the dressing becomes wet underneath, then simply remove the dressing. Keep the incision dry until you are 7 days out from the day of surgery. After 7 days you may remove the Silverlon dressing and shower with the teodoro exposed. Let soapy water run over the teodoro and pat them dry. Do not scrub or soak the incision. Diet: You may resume your previous diet. Things To Watch For: * Drainage from the incision site that occurs more than one week after your surgery. * Increased redness at the incision site. * Fever above 102 degrees Fahrenheit. * Unusual chest pain or shortness of breath. * Call [facility] at with any of the above problems Follow-Up Visit: Follow-up with Dr. Gutiérrez's PA (Johnny Alcantar) 2-3 weeks after your day of surgery. He will remove your teodoro and answer any questions. If you have any additional questions or concerns, Dr Gutiérrez is usually in the office at the same time and will be available An appointment was probably scheduled when you signed-up for surgery in the office. If you have any questions call More detailed instructions as well as Frequently Asked Questions were provided in a folder by our office when you signed-up for surgery. Please review these instructions when you get home. If you have any further questions or concerns, please feel free to call the office at [phone] Pending Studies at Discharge: No Stand-Alone Forms: My [facility], Smoking Cessation Medications and DC Order Prescriptions: New oxycodone 5 mg Tablet 5 mg PO Q4H PRN (Reason: pain) Qty: 30 0RF cefadroxil 500 mg capsule 500 mg PO BID 10 Days Qty: 20 0RF Continued Narcan 4 mg/actuation spray,non-aerosol 4 mg intranasal Q2M PRN (Reason: overdose) Qty: 2 1RF Rx Instructions: spray 1 dose into ONE nostril; alternate nostrils w each dose until help arrives (DME) Cock Up Wrist Splint See Rx Instructions .Route .MEDSUPPLY Qty: 1 0RF Rx Instructions: As directed. methenamine hippurate 1 gram tablet 1 g PO BID Qty: 180 3RF hydrochlorothiazide 25 mg tablet 25 mg PO QAM Qty: 90 3RF metoprolol succinate 100 mg tablet extended release 24 hr 100 mg PO QAM Qty: 90 3RF latanoprost 0.005 % drops 1 drp OP QPM Qty: 10 3RF potassium chloride 20 mEq tablet extended release 20 meq PO BID Qty: 180 3RF venlafaxine [Effexor XR] 150 mg capsule,extended release 24hr 150 mg PO QAM Qty: 90 3RF ondansetron HCl 8 mg tablet 8 mg PO DAILY PRN (Reason: nausea and vomiting) Qty: 90 3RF cholecalciferol (vitamin D3) 50 mcg (2,000 unit) capsule 50 mcg PO QAM aspirin 81 mg tablet,delayed release (DR/EC) 81 mg PO HS Patient Comments: *confirm if patient is still taking this medication baclofen 10,000 mcg/20mL (500 mcg/mL) solution 500 mcg IT UD Patient Comments: As per pain management with Dr Pierce morphine (PF) 0.5 mg/mL solution 1 mg intrathecal UD Patient Comments: As per pain management with Dr Pierce cranberry extract 1 cap PO BID atorvastatin 40 mg tablet 40 mg PO HS Qbrexza 2.4 % towelette 1 applic TOP DAILY PRN (Reason: prn) nabumetone 500 mg tablet 1,000 mg PO BID Discharge Orders: Discharge Order (Routine); Ordered 03/10/24 Ordered By: Johnny Gutiérrez Admission Data Admit Date/Time: 03/09/24 13:50 Attending Provider: Johnny Gutiérrez Admit Provider: Johnny Gutiérrez Primary Care Provider: Robyn Vila
[2024-03-10 08:16] VITALS: BP 118/68; RESP 18; TEMP 98.2; O2SAT 93
[2024-03-10] MEDS: hydroCHLOROthiazide 25 MG TAB PO SCH (09:22)
[2024-03-10] MEDS: dexAMETHasone 4 MG TAB PO SCH (09:22)
[2024-03-10] MEDS: VENLAFAXINE HCL XR 150 MG CAPXR PO SCH (09:22)
[2024-03-10] MEDS: METOPROLOL SUCC 50MG EXT REL TAB PO SCH (09:22)
[2024-03-10] MEDS: MULTIVITAMIN TAB PO SCH (09:22)
[2024-03-10 10:21] VITALS: PULSE 82
[2024-03-11] MEDS ORDERED: NABUMETONE 500 MG TABLET PO SCH (21:00)
--- NOTE | 2024-03-20 15:14 | Operative Report ---
PG Post Operative Report Pre & Post Diagnosis Operation Date: 03/09/24 12:00 Pre-Op Diagnosis: Avascular necrosis of head of humerus with tendinopathy long head of the biceps tendon Post-Op Diagnosis: Avascular necrosis of head of humerus with tendinopathy long head of the biceps tendon I identified the patient and participated in the time-out.: Yes Procedure Operation Date: 03/09/24 12:00 Actual Procedures p Left Reverse Total Shoulder Arthroplasty(Left) with open biceps tenodesis as a distinct and separate procedure (modifier 59)- Johnny Gutiérrez DO Surgeon Johnny Gutiérrez DO Zig Zag Spring Machine Operator Johnny Alcantar PA-C Estimated Blood Loss 150 Findings Consistent with Post-Op Diagnosis Specimens Left humeral head Description of Procedure A CPT code modifier 59: The long head of the biceps tendon was enlarged and inflamed consistent with tendinopathy. A tenodesis was opted. This was a separate and distinct portion of the procedure. For these reasons, a CPT code modifier 59 will be added to this case. Implants used: I used a [employer] Comprehensive reverse total shoulder arthroplasty system with a size 7 press fit micro humeral stem, a standard humeral tray and a +3 retentive humeral bearing, a 25 mm baseplate with a 6.5 mm central screw and superior and inferior locking screws, and a size 36 mm eccentric glenosphere. Alyssa arrived at [facility] for the above procedure. She was seen in the preoperative holding area and the operative extremity was identified and signed. She was given a preoperative antibiotic, TXA, and an interscalene nerve block. She was taken back to the operating room, laid on table in supine position, and put under general anesthesia. She was then put into the beachchair position. The shoulder was then prepped and draped in sterile fashion. A timeout was done and the patient and the operative extremity was properly identified. A deltopectoral approach was used. Dissection was taken down through the fascia and the deltoid was retracted laterally and the conjoined tendon was retracted medially. The anterior shoulder was exposed. The biceps groove was opened up and the biceps tendon was examined extensively. The biceps tendon demonstrated enlargement and inflammatory changes consistent with longstanding inflammation in the context of osteoarthritis and cuff arthropathy. The long head of the biceps tendon was then tenodesed to the upper border of the pectoralis major. This was a separate and distinct portion of the procedure. The subscapularis was then directly released off the lesser tuberosity with a peel technique. The inferior capsule was released and the humeral head was dislocated. A canal finding reamer was sent down the center of the humeral canal. Sequential reaming up to a size 7 reamer was done. Off that reamer, a proximal humeral resection guide was placed. The proximal humerus was resected at 135 of inclination and 25 of retroversion. Osteophytes were then removed and the glenoid was exposed. Time was spent doing a complete capsular and labral release. The glenoid guide was then placed in the inferior aspect of the glenoid. A 3.2 mm Steinmann pin was then placed into the glenoid vault at 10 of inclination. The glenoid baseplate was then reamed. The final size 25 mm baseplate was then impacted in the place. A 6.5 mm central screw was then placed followed by superior and inferior locking screws. A 36 mm eccentric glenosphere was then impacted into place. Surrounding soft tissues were then injected with 100 cc an orthopedic pain control cocktail. The proximal humerus was then exposed. Sequential broaching of the humerus up to a size 7 broach was done. Off that b turk a +3 retentive humeral tray was trialed. The shoulder was then reduced, brought through a full range of motion, and felt to be stable. The shoulder was then dislocated and the broach was removed. The final size 7 micro press-fit humeral stem was then impacted into place. A +3 retentive humeral bearing was then snapped onto a standard humeral tray. The humeral tray was then impacted onto the humeral stem. The shoulder was once again reduced, brought through a full range of motion, and felt to be stable. The subscapularis was unable to be repaired. A dilute betadyne lavage was then done for 3 minutes. The joint was then irrigated with normal saline solution. Hemostasis was obtained. The interval was closed with 2-0 Vicryl suture. The skin was then closed with 2-0 Vicryl and teodoro. A Silverlon dressing was placed and the arm was rested in a regular arm sling. She was then extubated and transferred to a hospital bed. She taken to the postanesthesia care unit in stable condition. She tolerated the procedure well. Johnny Alcantar PA-C, was present for the entire procedure. He was critical for patient positioning, prepping, draping, retraction exposure, wound closure and application of sterile dressing. I attest to the content of the Intraoperative Record and any orders documented therein. Any exceptions are noted below.
== END 2024-03-10 11:18 | disposition home or self-care (01) ==
LOC: ASU 09:16 → PACUINP 09:16 → 3E 15:31